=== PATIENT | male | born 1985 | race Hispanic/Latino ===

== ENCOUNTER 2017-10-03 18:54 | Emergency (ER) | payer SELFPAY ==
[2017-10-03 19:12] VITALS: BP 109/69; PULSE 102; RESP 16; TEMP 98.6; O2SAT 96
[2017-10-03] MEDS ORDERED: Tdap Vaccine 0.5 ml Vial (10-64 yrs) IM ONE ×2 (21:04→22:02)
--- NOTE | 2017-10-03 21:12 | ED PDOC ---
HPI: Wound Care - HPI Time Seen by Provider: 10/03/17 20:36 Chief Complaint (Nursing): Lower Extremity Problem/Injury Chief Complaint (Provider): Laceration to foot History Per: Patient Exam Limitations: no limitations Onset/Duration Of Symptoms: Hrs Current Symptoms Are (Timing): Still Present Additional Complaint(s): Patient is a 31 y/o male who presents for wound evaluation of laceration to the left foot. States this morning while cooking, he went to remove a glass cabrales from oven, which fell and shattered. Patient was barefoot at the time, and stepped on a few pieces of glass. Took Midol for pain prior to arrival. Now complaining of localized pain to bottom of left foot, worsens with ambulating. Patient is unsure of possible foreign body sensation. Tetanus: not up to date Pmd: none Past Medical History Reviewed: Historical Data, Nursing Documentation, Vital Signs Vital Signs: Last Vital Signs Temp 98.6 F 10/03/17 19:09 Pulse 102 H 10/03/17 19:09 Resp 16 10/03/17 19:09 BP 109/69 10/03/17 19:09 Pulse Ox 96 10/03/17 19:09 - Medical History PMH: No Chronic Diseases - Surgical History Other surgeries: sinus surgery, lipoma removal - Family History Family History: States: Unknown Family Hx - Social History Current smoker - smoking cessation education provided: Yes (6 cigarettes per day ) Alcohol: None Drugs: Denies - Immunization History Hx Tetanus Toxoid Vaccination: No - Allergies Allergies/Adverse Reactions: Allergies Allergy/AdvReac Type Severity Reaction Status Date / Time No Known Allergies Allergy Verified 10/03/17 19:09 Review of Systems ROS Statement: Except As Marked, All Systems Reviewed And Found Negative Musculoskeletal: Positive for: Foot Pain Skin: Positive for: Lesions (to bottom of left foot) Neurological: Negative for: Weakness, Numbness Physical Exam - Reviewed Nursing Documentation Reviewed: Yes Vital Signs Reviewed: Yes - Physical Exam Comments: GENERAL APPEARANCE: Patient is awake, alert, oriented x 3, in no acute distress. Ambulatory in ED. SKIN: Warm, dry; (-) cyanosis. LOWER EXTREMITY: (+) 0.75 cm superficial, linear, horizontal abrasion to the plantar aspect of the base of left 5th toe; No active bleeding; (-) tenderness, (-) ecchymosis (-) FB. (+) 1 cm X-shaped, superficial laceration to the plantar aspect of the base of the left great toe; No active bleeding, (+) tenderness; No visible foreign body, (-) ecchymosis. Full ROM of foot, ankle, and toes. (+) sensation intact; (-) distal neuro deficits. Cap refill <2 seconds in all toes of affected foot. CARDIOVASCULAR: (+) distal pulse 2+ NEUROLOGIC: (+) distal sensation. LUNGS: clear to auscultation bilaterally with equal breath sounds - ECG O2 Sat by Pulse Oximetry: 96 (RA) Pulse Ox Interpretation: Normal Procedure: Wound Repair - Time Out Time Out: Site verified, Patient ID confirmed - Consent Obtained Consent obtained: Verbal - Performed by Performed by: Mid-level Provider - Indications Indication(s):: Laceration - Location Location:: Foot Shape:: Stellate Dimensions Length cm: 1 Depth:: Epidermis - Debris Debris:: None - Irrigated Irrigated with ml of normal saline: 30 - Complexity Complexity:: Simple (one layer) - Wound repair method Tash:: Tissue glue - Complications Complications: None - Patient tolerated procedure Patient Tolerated Procedure:: Well Medical Decision Making Medical Decision Making: Clinical Impression: Wound check, Foot laceration, concern for foreign body Time: 21:04 Initial Plan: * X-ray of left foot * Tramadol 50 mg PO * Tetanus booster vaccine * Dermabond wound closure 2200 XR reviewed: (-) FB (-) fracture Patient advised that official radiology read of XR is still pending and will call the patient if there is any discrepancy within 24 hours. 2245 Laceration repair performed by Noemi TRUJILLO. See procedure note below. NV intact after procedure. 2305 On re-evaluation, patient reports improvement of symptoms. On exam, patient remains AAOx3, in no acute distress. On exam, neck is supple, lungs CTA, cardiac RRR, abdomen is soft and non-tender, neuro exam shows no focal findings. Ambulatory in ED with steady, unassisted gait. Diagnostic results d/ w the patient in great detail. Dx of acute foot pain, foot abrasions d/w the patient. Based on history, exam and diagnostic results plan will be for discharge and outpatient follow up. Advised to follow up with primary care physician/clinic/podiatry in 1-2 days without fail. Return to the emergency room at any time for any new or worsening symptoms. Patient states he fully agrees with and understands discharge instructions. States that he agrees with the plan and disposition. Verbalized and repeated discharge instructions and plan. I have given the patient opportunity to ask any additional questions. Scribe Attestation: Documented by My Scherer, acting as a scribe for Latrice Franklin PA-C Provider Scribe Attestation: All medical record entries made by the Scribe were at my direction and personally dictated by me. I have reviewed the chart and agree that the record accurately reflects my personal performance of the history, physical exam, medical decision making, and the department course for this patient. I have also personally directed, reviewed, and agree with the discharge instructions and disposition. Disposition - Clinical Impression Clinical Impression: Laceration of foot - Patient ED Disposition Is Patient to be Admitted: No Counseled Patient/Family Regarding: Studies Performed, Diagnosis, Need For Followup - Disposition Referrals: Dewayne Pelletier MD [Staff Provider] - Disposition: Routine/Home Disposition Time: 23:07 Condition: STABLE Additional Instructions: KEEP WOUND CLEAN AND DRY RETURN IMMEDIATELY WITH ANY SIGNS OF INFECTION. Instructions: Laceration Repair With Glue (DC), Wound Care Forms: [employer] (Estonian) Print Language: MAORI - POA Present On Arrival: None
--- NOTE | 2017-10-04 08:43 | RAD ---
PROCEDURE: Left Foot Radiographs. HISTORY: r/o foreign body COMPARISON: None. FINDINGS: BONES: No acute fracture or destructive bony lesion identified. JOINTS: A mild hallux valgus deformity is appreciated. Degenerative sclerosis and joint space narrowing seen at the 1st metatarsophalangeal joint Joints throughout the left foot otherwise appear intact and unremarkable. SOFT TISSUES: No retained radiodense foreign body is identified throughout the left foot soft tissues as imaged. OTHER FINDINGS: None. IMPRESSION: No retained radiodense foreign body identified throughout soft tissues as discussed above. No acute fracture, subluxation or dislocation. A mild hallux valgus deformity is identified.
== END 2017-10-03 23:13 | disposition home or self-care (01) ==
LOC: H.ER 18:54
DX: S91.312A Laceration without foreign body, left foot, initial encounter (principal); W25.XXXA Contact with sharp glass, initial encounter; Y92.89 Other specified places as the place of occurrence of the external cause